=== PATIENT | male | born 1955 | race Caucasian/White ===

== ENCOUNTER 2017-02-28 09:09 | Emergency (ER) | payer SELFPAY ==
[2017-02-28 09:14] VITALS: BP 137/85; PULSE 70; RESP 16; TEMP 97.3; O2SAT 95
--- NOTE | 2017-02-28 09:44 | EDPHY ---
H & P Time Seen by Provider: 02/28/17 09:24 HPI/ROS: CHIEF COMPLAINT: left ankle pain HISTORY OF PRESENT ILLNESS: This otherwise healthy 61-year-old male, presents to the emergency department after an inversion ankle injury. The patient complains of pain to the lateral ankle and swelling. The patient has no other complaints, denies numbness or tingling to affected limb. Smoking Status: Never smoked Physical Exam: General appearance: alert no distress Left ankle: There is swelling and tenderness over the lateral ankle. TTP to ATFL and CFL. No tenderness over the achilles tendon. The foot is non-tender without swelling. No TTP over 5th metatarsal. Neurologic exam: The patient has normal sensation and motor function distal to the injury. Vascular exam: Normal pulses and capillary refill in the foot Constitutional: Initial Vital Signs Temperature (C) 36.3 C 02/28/17 09:12 Heart Rate 70 02/28/17 09:12 Respiratory Rate 16 02/28/17 09:12 Blood Pressure 137/85 H 02/28/17 09:12 O2 Sat (%) 95 02/28/17 09:12 O2 Delivery Mode Room Air Allergies/Adverse Reactions: clindamycin Allergy (Verified 11/15/12 16:20) Home Medications: Medication Instructions Recorded Cephalexin [Keflex] 500 mg PO QID #28 cap 11/15/12 Diazepam [Valium 5 MG (RX)] 15 mg PO 11/15/12 Ibuprofen [Advil] 200 mg PO 11/15/12 MDM/Departure - MDM Imaging Results: Imaging Impressions Ankle X-Ray 02/28/17 09:25 Impression: 1. Lateral ankle sprain. 2. Moderate arteriosclerotic vascular calcifications noted. This can be seen with underlying diabetes. Imaging: I viewed and interpreted images myself - Depart Disposition: Home, Routine, Self-Care Clinical Impression: Left ankle sprain Qualifiers: Encounter type: initial encounter Involved ligament of ankle: calcaneofibular ligament Qualified Code(s): S93.412A - Sprain of calcaneofibular ligament of left ankle, initial encounter Condition: Good Instructions: Ankle Sprain (ED) Additional Instructions: Rest, ice, elevate, take 325 mg of aspirin daily for the next 7 days while traveling, wear your compression stockings. Follow up with your orthopedist on return home for pain that is not improving. Return to the emergency department for any worsening symptoms, new symptoms or concerns. It was noted on xray that you have calcification in one of your veins in your lower leg. Follow up with your primary care doctor for this. Referrals: Dustin Albright MD [Primary Care Provider] - As per Instructions Honorio Marie MD [Medical Doctor] - As per Instructions
== END 2017-02-28 10:20 | disposition home or self-care (01) ==
DX: S93.412A Sprain of calcaneofibular ligament of left ankle, initial encounter (principal); X58.XXXA Exposure to other specified factors, initial encounter
CPT/HCPCS: L4350